=== PATIENT | male | born 1950 | race Caucasian/White ===

== ENCOUNTER 2018-10-27 14:37 | Inpatient (IN) | payer MEDICARE, SELFPAY ==
[~2018-10-27] VITALS: Ht 172.7 cm; Wt 87.5 kg
[~2018-10-27 14:37] MED LIST: ALPR1TAB7 PO; AMPH20TA3 PO; ASPI-891 PO; CLON-570 PO; DULO60CA44 PO; LUBI24CA2 PO; MACR100 PO; PANT40TA25 PO
[2018-10-27 15:45] VITALS: BP 172/92
[2018-10-27] MEDS ORDERED: BENA20 PO (17:04)
[2018-10-27] MEDS ORDERED: ESCI10TA PO (17:04)
[2018-10-27 17:05] VITALS: BP 153/93
[2018-10-27] MEDS ORDERED: PNEUMOCOCCAL VACCINE POLYVALENT 0.5 ML VIAL [PPSV23] IM ONE (17:30)
[2018-10-27 18:25] VITALS: BP 153/93
[2018-10-27] MEDS ORDERED: MAG HYDROX/AL HYDROX/SIMETH ES 30 ML SUSPENSION UDCUP PO PRN (18:30)
[2018-10-27] MEDS ORDERED: CloNIDine HCL 0.1 MG TABLET PO PRN (18:30)
[2018-10-27] MEDS ORDERED: ALBUTEROL SULFATE HFA 90 MCG/PUFF 8 GM INHALER IH PRN (18:30)
[2018-10-27] MEDS ORDERED: GuaiFENesin/D-METHORPHAN [SUGAR-FREE] 200-20MG/10 ML SYRUP UDCUP PO PRN (18:30)
[2018-10-27] MEDS ORDERED: DOCUSATE SODIUM 100 MG CAPSULE PO PRN (18:30)
[2018-10-27] MEDS ORDERED: PETROLATUM,WHITE 71 GM JELLY TP PRN (18:30)
[2018-10-27] MEDS ORDERED: LOPERAMIDE HCL 2 MG CAPSULE PO PRN (18:30)
[2018-10-27] MEDS ORDERED: ONDANSETRON HCL 4 MG TABLET PO PRN (18:30)
[2018-10-27] MEDS ORDERED: MAGNESIUM HYDROXIDE SUSPENSION 30 ML UDCUP PO PRN (18:30)
[2018-10-27] MEDS ORDERED: ACETAMINOPHEN 325 MG TABLET PO PRN (18:30)
[2018-10-27 19:05] VITALS: BP 145/77
[2018-10-27 20:05] VITALS: BP 160/93
[2018-10-27] MEDS: BENAZEPRIL HCL 20 MG TABLET PO SCH (21:29)
[2018-10-27 22:32] VITALS: BP 144/69
[2018-10-27] MEDS: IBUPROFEN 400 MG TABLET PO PRN (22:35)
[2018-10-27] MEDS: LORazepam 2 MG TABLET PO PRN (23:14)
[2018-10-27] MEDS: ZOLPIDEM TARTRATE 10 MG TABLET PO PRN (23:57)
[2018-10-28] VITALS (10 sets, daily range): BP systolic 130–138; BP diastolic 64–88
[2018-10-28] MEDS: BENAZEPRIL HCL 20 MG TABLET PO SCH (08:36)
[2018-10-28] MEDS: TAMSULOSIN HCL 0.4 MG CAPSULE PO SCH (08:36)
[2018-10-28] MEDS: BACITRACIN 28.4 GM OINTMENT TP SCH (08:37)
[2018-10-28] MEDS: ESCITALOPRAM OXALATE 10 MG TABLET PO SCH (10:37)
[2018-10-28] MEDS: LORazepam 2 MG TABLET PO PRN ×2 (14:05→18:28)
[2018-10-28] MEDS: ZOLPIDEM TARTRATE 10 MG TABLET PO PRN (21:00)
[2018-10-28] MEDS: IBUPROFEN 400 MG TABLET PO PRN (21:00)
[2018-10-29] MEDS: LORazepam 2 MG TABLET PO PRN ×3 (00:16→19:43)
[2018-10-29 00:20] VITALS: BP 126/72
[2018-10-29 08:01] VITALS: BP 140/71
[2018-10-29] MEDS: TAMSULOSIN HCL 0.4 MG CAPSULE PO SCH (08:18)
[2018-10-29] MEDS: THIAMINE HCL 100 MG TABLET PO SCH (08:18)
[2018-10-29] MEDS: FOLIC ACID 1 MG TABLET PO SCH (08:18)
[2018-10-29] MEDS: ESCITALOPRAM OXALATE 10 MG TABLET PO SCH (08:18)
[2018-10-29] MEDS: BACITRACIN 28.4 GM OINTMENT TP SCH (08:18)
[2018-10-29] MEDS: BENAZEPRIL HCL 20 MG TABLET PO SCH (08:18)
[2018-10-29 08:51] LABS: EOSINOPHILS % (AUTO) 5.8 % (1.0-6.0); HEMATOCRIT 42.4 % (41-53); HEMOGLOBIN 14.1 g/dL (13.5-17.5); LYMPHOCYTES # (AUTO) 0.9 K/uL (1.0-4.8); LYMPHOCYTES % (AUTO) 15.6 % (22.0-44.0); MEAN CORPUSCULAR HEMOGLOBIN 34.7 pg (26.0-34.0); MEAN CORPUSCULAR HGB CONC 33.2 G/dL (31.0-37.0); MEAN CORPUSCULAR VOLUME 105 fL (80-100); MONOCYTES # (AUTO) 0.8 K/uL (0.1-1.0); MONOCYTES % (AUTO) 13.3 % (2.0-9.0); NEUTROPHILS # (AUTO) 3.7 K/uL (1.8-7.7); NEUTROPHILS % (AUTO) 64.3 % (40.0-70.0); RED BLOOD CELL COUNT(AUTO) 4.05 MIL/uL (4.50-5.90); RED CELL DISTRIBUTION WIDTH 13.4 % (11.5-14.5)
[2018-10-29 09:47] LABS: ALANINE AMINOTRANSFERASE 26 U/L (12-78); ALBUMIN 2.7 g/dL (3.4-5.0); ALKALINE PHOSPHATASE 82 U/L (46-116); ANION GAP 4 mmol/L (8-16); ASPARTATE AMINOTRANSFERASE 38 U/L (15-37); CALCIUM, TOTAL 9.5 mg/dL (8.8-10.5); CARBON DIOXIDE 32 mmol/L (22-29); CHLORIDE 103 mmol/L (98-107); CHOL/HDL RATIO 2.1 (4.2-7.3); CHOLESTEROL 148 mg/dL (131-200); CREATININE 1.09 mg/dL (0.60-1.30); FREE T4 (FREE THYROXINE) 1.07 ng/dL (0.76-1.46); GLOMERULAR FILTR. RATE CALC > 60 mL/min (>60); GLUCOSE,RANDOM 111 mg/dL (70-110); HDL CHOLESTEROL 71 mg/dL (40-60); LDL CHOL (CALC.) 63 mg/dL (0-130); POTASSIUM 4.3 mmol/L (3.5-5.1); SODIUM SERUM 139 mmol/L (136-145); THYROID STIMULATING HORMONE 1.22 uIU/mL (0.36-3.74); TOTAL PROTEIN, SERUM 6.2 g/dL (6.4-8.2); TRIGLYCERIDES 68 mg/dL (15-150); UREA NITROGEN, BLOOD 16 mg/dL (7-18)
[2018-10-29] MEDS: DENTURE ADHESIVE 68 GM CREAM DT PRN (12:25)
[2018-10-29 14:28] VITALS: BP 145/90
[2018-10-29] MEDS: OxyCODONE HCL/ACETAMINOPHEN 5-325 MG TABLET PO PRN ×2 (14:28→22:30)
[2018-10-29 16:20] VITALS: BP_SYST 140; BP_SYST 40; BP_DIAS 90
[2018-10-29] MEDS: ZOLPIDEM TARTRATE 10 MG TABLET PO PRN (21:10)
[2018-10-29 22:25] VITALS: BP 128/66
[2018-10-30 00:52] VITALS: BP 132/65
[2018-10-30] MEDS: LORazepam 2 MG TABLET PO PRN ×2 (01:01→23:07)
[2018-10-30 08:13] LABS: BASOPHILS % (AUTO) 1.4 % (0.0-2.0); EOSINOPHILS % (AUTO) 6.1 % (1.0-6.0); HEMATOCRIT 40.6 % (41-53); HEMOGLOBIN 13.7 g/dL (13.5-17.5); LYMPHOCYTES # (AUTO) 0.9 K/uL (1.0-4.8); LYMPHOCYTES % (AUTO) 18.3 % (22.0-44.0); MEAN CORPUSCULAR HGB CONC 33.9 G/dL (31.0-37.0); MEAN CORPUSCULAR VOLUME 104 fL (80-100); MONOCYTES # (AUTO) 0.7 K/uL (0.1-1.0); MONOCYTES % (AUTO) 13.9 % (2.0-9.0); NEUTROPHILS % (AUTO) 60.3 % (40.0-70.0); RED BLOOD CELL COUNT(AUTO) 3.92 MIL/uL (4.50-5.90); RED CELL DISTRIBUTION WIDTH 13.7 % (11.5-14.5)
[2018-10-30 08:21] VITALS: BP 139/85
[2018-10-30] MEDS: THIAMINE HCL 100 MG TABLET PO SCH (08:43)
[2018-10-30] MEDS: TAMSULOSIN HCL 0.4 MG CAPSULE PO SCH (08:43)
[2018-10-30] MEDS: BENAZEPRIL HCL 20 MG TABLET PO SCH (08:43)
[2018-10-30] MEDS: ESCITALOPRAM OXALATE 10 MG TABLET PO SCH (08:43)
[2018-10-30] MEDS: FOLIC ACID 1 MG TABLET PO SCH (08:43)
[2018-10-30] MEDS: BACITRACIN 28.4 GM OINTMENT TP SCH (08:46)
[2018-10-30 08:47] LABS: PLATELET COUNT (AUTO) 60 K/uL (150-450)
[2018-10-30] MEDS: DENTURE ADHESIVE 68 GM CREAM DT PRN (09:38)
[2018-10-30 15:40] VITALS: BP 138/84
[2018-10-30] MEDS: OxyCODONE HCL/ACETAMINOPHEN 5-325 MG TABLET PO PRN (15:40)
[2018-10-30 16:40] VITALS: BP 132/82
[2018-10-30] MEDS: ZOLPIDEM TARTRATE 10 MG TABLET PO PRN (22:12)
[2018-10-31 00:38] VITALS: BP 136/77
[2018-10-31 08:07] VITALS: BP 141/90
[2018-10-31] MEDS: TAMSULOSIN HCL 0.4 MG CAPSULE PO SCH (08:18)
[2018-10-31] MEDS: FOLIC ACID 1 MG TABLET PO SCH (08:18)
[2018-10-31] MEDS: THIAMINE HCL 100 MG TABLET PO SCH (08:18)
[2018-10-31] MEDS: BENAZEPRIL HCL 20 MG TABLET PO SCH (08:18)
[2018-10-31] MEDS: ESCITALOPRAM OXALATE 10 MG TABLET PO SCH (08:18)
[2018-10-31] MEDS: BACITRACIN 28.4 GM OINTMENT TP SCH (08:20)
[2018-10-31] MEDS: OxyCODONE HCL/ACETAMINOPHEN 5-325 MG TABLET PO PRN ×2 (08:32→23:08)
[2018-10-31] MEDS: DENTURE ADHESIVE 68 GM CREAM DT PRN ×2 (10:06→20:58)
[2018-10-31] MEDS: LORazepam 2 MG TABLET PO PRN ×2 (10:06→20:58)
[2018-10-31] MEDS: OMEPRAZOLE 20 MG CAPSULE PO SCH (10:22)
[2018-10-31 16:47] VITALS: BP 134/81
[2018-10-31] MEDS: ZOLPIDEM TARTRATE 10 MG TABLET PO PRN (22:01)
[2018-10-31 23:00] VITALS: BP 140/83
[2018-11-01 00:07] VITALS: BP 138/93
[2018-11-01] MEDS: LORazepam 2 MG TABLET PO PRN ×2 (01:22→14:07)
[2018-11-01] MEDS: FOLIC ACID 1 MG TABLET PO SCH (08:23)
[2018-11-01] MEDS: BENAZEPRIL HCL 20 MG TABLET PO SCH (08:23)
[2018-11-01] MEDS: THIAMINE HCL 100 MG TABLET PO SCH (08:23)
[2018-11-01] MEDS: ESCITALOPRAM OXALATE 10 MG TABLET PO SCH (08:23)
[2018-11-01] MEDS: TAMSULOSIN HCL 0.4 MG CAPSULE PO SCH (08:23)
[2018-11-01] MEDS: OMEPRAZOLE 20 MG CAPSULE PO SCH (08:23)
[2018-11-01] MEDS: BACITRACIN 28.4 GM OINTMENT TP SCH (08:24)
[2018-11-01 08:31] VITALS: BP 140/83
[2018-11-01] MEDS: HALOPERIDOL 5 MG TABLET PO PRN (14:53)
[2018-11-01 16:06] VITALS: BP 133/82
[2018-11-02] MEDS: HALOPERIDOL 5 MG TABLET PO PRN (00:16)
[2018-11-02 01:17] VITALS: BP 128/72
[2018-11-02] MEDS: ZOLPIDEM TARTRATE 10 MG TABLET PO PRN (01:25)
[2018-11-02] MEDS: DENTURE ADHESIVE 68 GM CREAM DT PRN (06:07)
[2018-11-02 08:42] VITALS: BP 115/69
[2018-11-02] MEDS: THIAMINE HCL 100 MG TABLET PO SCH (08:46)
[2018-11-02] MEDS: TAMSULOSIN HCL 0.4 MG CAPSULE PO SCH (08:46)
[2018-11-02] MEDS: FOLIC ACID 1 MG TABLET PO SCH (08:46)
[2018-11-02] MEDS: OMEPRAZOLE 20 MG CAPSULE PO SCH (08:46)
[2018-11-02] MEDS: BACITRACIN 28.4 GM OINTMENT TP SCH (08:47)
[2018-11-02] MEDS: ESCITALOPRAM OXALATE 10 MG TABLET PO SCH (08:47)
[2018-11-02] MEDS: BENAZEPRIL HCL 20 MG TABLET PO SCH (08:47)
[2018-11-02] MEDS ORDERED: ESCI10TA PO (12:29)
[2018-11-02] MEDS ORDERED: OMEP20 PO (12:29)
[2018-11-02] MEDS ORDERED: TAMS-1 PO (12:29)
[2018-11-02] MEDS ORDERED: BENA20 PO (12:29)
== END 2018-11-02 13:40 | disposition home or self-care (01) | DRG 885 ==
LOC: B2X 16:56
PROVIDERS: ADMIT Psychiatry & Neurology Child & Adolescent Psychiatry; ATTEND Psychiatry & Neurology Child & Adolescent Psychiatry
DX: F31.13 Bipolar disorder, current episode manic without psychotic features, severe (principal); R45.851 Suicidal ideations; D69.6 Thrombocytopenia, unspecified; E78.5 Hyperlipidemia, unspecified; I10 Essential (primary) hypertension; M19.90 Unspecified osteoarthritis, unspecified site; N40.0 Benign prostatic hyperplasia without lower urinary tract symptoms; Z59.0 Homelessness; Z79.899 Other long term (current) drug therapy
CPT/HCPCS: 83036; 84439; 84443; 90732; G0480